=== PATIENT | female | born 1975 | race Caucasian/White ===

== ENCOUNTER 2024-01-06 14:52 | Outpatient (CLI) | payer BC, SELFPAY ==
--- NOTE | 2024-01-06 14:57 | CA_ITS ---
APPROVED REPORT EXAM: Limited 2D, Doppler, and color-flow Echocardiogram [employer] Developer: Fartun Schmitz RT(R) Ht: 5 ft 7 in Wt: 185lbs BSA: 1.96 BP: 156/74 mmHg Indications: CM, CP, DM I, HTN, IVY, EF 25-30% at outside facility, abn EKG 2D Dimensions EF AP2 37.7 % GL Strain -7.9 % M-Mode Dimensions RVDd 3.00 cm (0.9-2.6) LVDd 4.78 cm (3.5-5.7) LVDs 3.49 cm (3.5-5.7) IVSd 0.80 cm (0.6-1.1) PWd 0.91 cm (0.6-1.1) EF (Teich) 52.60% FS 27.00% EDV (Teich) 106.50 mL ESV (Teich) 50.50 mL LV Diastology E Decel Time 177 (160-240 msec) E/A Ratio 1.8 Mitral Valve MV E Max Anthony. 98.0 (40-130 cm/s) MV A Velocity 56.0 (40-130 cm/s) E/A Ratio 1.75 MV PHT 52.0 ms Other Information Study Quality: Adequate Conclusion This is a limited TTE to evaluate for LVEF. Limited windows were obtained. There is normal LV size the LV is normal in size. There is increased LV wall thickness. There is normal global and regional LV systolic function. LVEF is 55%. The right ventricle is also normal in size and function. The atria are normal in size. Mild MR is incidentally noted during this limited study. No evidence of pericardial effusion. Electronically signed by : Racquel Harper MD 01/08/2024 00:17:01
== END 2024-01-06 23:59 | disposition home or self-care (01) ==
LOC: RT 14:54
PROVIDERS: PCP Nurse Practitioner; Visit Provider Physician Assistant
DX: I42.0 Dilated cardiomyopathy (principal); R06.09 Other forms of dyspnea; R07.89 Other chest pain; I10 Essential (primary) hypertension; R94.31 Abnormal electrocardiogram [ECG] [EKG]
CPT/HCPCS: 93308